=== PATIENT | male | born 1945 | race Caucasian/White ===

== ENCOUNTER 2018-02-19 09:51 | Day surgery (SDC) | payer MEDICARE, BC ==
[2018-02-19] VITALS (7 sets, daily range): BP systolic 120–150; BP diastolic 62–83; PULSE 39–76; TEMP 98–98.2
[~2018-02-19] VITALS: Ht 175.4 cm; Wt 107.2 kg
[~2018-02-19 09:51] MED LIST: AMBIEN 5MG TABLE5 MG PO; BENADRYL50 MG PO; BETAPACE 120MG120 MG PO; COUMADIN 3MG3 MG/TAB PO; COUMADIN4 MG PO; FISH OIL1000 MG PO; LOVENOX 3030 MG/0.3 SQ; NORVASC 5MG5 MG/TAB PO; PRILOSEC 20MG20 MG PO; PRINIVIL40 MG PO; ZETIA 10MG TAB10 MG PO
[2018-02-19 10:33] LABS: HEMOGLOBIN 12.5 g/dl (13.5-18.0); MEAN CELL VOLUME 91 fl (80.0-100.0); MEAN CORPUSCULAR HEMOGLOBIN 29 pg (27.0-31.0); MEAN CORPUSCULAR HGB CONC 32 g/dl (33.0-37.0); MEAN PLATELET VOLUME 11.5 fl (7.4-10.4); PLATELET COUNT 175 K/mm3 (130-400); RED BLOOD COUNT 4.29 M/mm3 (4.20-5.60); REDCELL DISTRIBUTION WIDTH-CV 13.2 % (11.5-14.5)
[2018-02-19 10:43] LABS: CALCIUM 9.1 mg/dL (8.4-10.2); CREATININE, serum 1.01 mg/dL (0.66-1.25); POTASSIUM 4.5 mmol/L (3.4-5.0)
[2018-02-19 10:45] LABS: INR 1.6 (0.8-3.0); PROTHROMBIN TIME 18.5 SECONDS (9.7-12.8)
[2018-02-19] MEDS ORDERED: NORVASC 10MG10 MG PO (10:46)
[2018-02-19] MEDS ORDERED: VITAMIN D32000 I1 PO (10:46)
[2018-02-19] MEDS ORDERED: ZYRTEC 10MG10 MG PO (10:47)
[2018-02-19] MEDS ORDERED: COLACE 100100 MG/CAP PO (10:47)
[2018-02-19] MEDS ORDERED: COZAAR 50MG50 MG/TAB PO (10:48)
[2018-02-20 00:39] VITALS: BP 140/55; PULSE 70
[2018-02-20 05:03] VITALS: BP 139/58; PULSE 76
[2018-02-20 07:19] LABS: INR 1.5 (0.8-3.0); PROTHROMBIN TIME 16.7 SECONDS (9.7-12.8)
[2018-02-20 08:19] VITALS: BP 142/57; PULSE 70; TEMP 98.2
[2018-02-20] MEDS ORDERED: CEPHALEXIN500 M1 PO (09:27)
[2018-02-20] MEDS ORDERED: BETAPACE 80MG80 MG PO (11:02)
== END 2018-02-20 11:55 | disposition home or self-care (01) ==
LOC: COL.CAR 09:51 → MEDICAL 16:30 → COL.CAR 02-20 11:55
PROVIDERS: Internal Medicine Cardiovascular Disease
DX: R00.1 Bradycardia, unspecified (principal); I48.0 Paroxysmal atrial fibrillation; I10 Essential (primary) hypertension; I71.2 Thoracic aortic aneurysm, without rupture; Z79.01 Long term (current) use of anticoagulants; Z87.891 Personal history of nicotine dependence; Z95.2 Presence of prosthetic heart valve
CPT/HCPCS: OP; C1769; C1785; C1894; C1898; J0690; J2250; J3010; J7030

== ENCOUNTER 2018-06-18 08:59 | Day surgery (SDC) | payer MEDICARE, BC ==
[~2018-06-18] VITALS: Ht 175.3 cm; Wt 106.3 kg
[~2018-06-18 08:59] MED LIST changes: -BETAPACE 120MG120 MG PO; +BETAPACE 80MG80 MG PO; +BETAPACE160 MG PO; +CEPHALEXIN500 M1 PO; +COLACE 100100 MG/CAP PO; +COZAAR 50MG50 MG/TAB PO; +NORVASC 10MG10 MG PO; +VITAMIN D31000 I1 PO; +ZYRTEC 10MG10 MG PO
[2018-06-18 09:44] VITALS: BP 138/83; PULSE 71; TEMP 97.5
[2018-06-18 10:06] LABS: INR 1.7 (0.8-3.0); PROTHROMBIN TIME 19.8 SECONDS (9.7-12.8)
[2018-06-18] MEDS ORDERED: FERROUS SU325 MG/TAB PO (10:07)
[2018-06-18 10:09] LABS: POTASSIUM 4.4 mmol/L (3.4-5.0)
[2018-06-18 10:41] LABS: THYROID STIMULATING HORMONE 2.05 uIU/mL (0.465-4.680)
[2018-06-18 10:53] LABS: HEMATOCRIT 30.8 % (42.0-52.0)
[2018-06-18] MEDS ORDERED: COUMADIN 3MG3 MG/TAB PO (11:33)
[2018-06-18] MEDS ORDERED: COUMADIN4 MG PO (11:34)
--- NOTE | 2018-06-18 11:49 | NUR ---
Procedure cancelled per Dr Jason.Discharge instructions given to pt.Pt verbalizes understanding.INT removed,catheter tip intact.
--- NOTE | 2018-06-18 11:57 | NUR ---
Pt escorted out by this nurse.
== END 2018-06-18 11:58 | disposition home or self-care (01) ==
LOC: COL.CAR 08:59
PROVIDERS: Internal Medicine Cardiovascular Disease; Nurse Practitioner
DX: I48.0 Paroxysmal atrial fibrillation (principal); G47.30 Sleep apnea, unspecified; Z95.0 Presence of cardiac pacemaker; Z79.899 Other long term (current) drug therapy; Z79.01 Long term (current) use of anticoagulants; Z09 Encounter for follow-up examination after completed treatment for conditions other than malignant neoplasm; Z95.2 Presence of prosthetic heart valve; I35.9 Nonrheumatic aortic valve disorder, unspecified; Z53.09 Procedure and treatment not carried out because of other contraindication; R79.1 Abnormal coagulation profile
CPT/HCPCS: J7030

== ENCOUNTER 2018-07-06 08:03 | Day surgery (SDC) | payer MEDICARE, BC ==
[2018-07-06] VITALS (10 sets, daily range): BP systolic 115–145; BP diastolic 7–82; PULSE 68–70; TEMP 97.9
[~2018-07-06] VITALS: Ht 175.3 cm; Wt 103.9 kg
[~2018-07-06 08:03] MED LIST changes: +FERROUS SU325 MG/TAB PO
[2018-07-06 09:05] LABS: POTASSIUM 3.9 mmol/L (3.4-5.0)
[2018-07-06 09:08] LABS: INR 2.7 (0.8-3.0); PROTHROMBIN TIME 30.5 SECONDS (9.7-12.8)
[2018-07-06] MEDS ORDERED: TYLENOL 500MG500 MG PO (09:09)
[2018-07-06] MEDS ORDERED: TYLENOL PM EXTR1 TA1 PO (09:10)
[2018-07-06 09:40] LABS: THYROID STIMULATING HORMONE 1.84 uIU/mL (0.465-4.680)
--- NOTE | 2018-07-06 10:07 | NUR ---
PT IN ROOM 12 POST SUCCESSFUL CARDIOVERSION. VSS AND DROWSY BUT AROUSABLE. PT DENIES PAIN AT THIS TIME AND IS RESTING COMFORTABLY IN BED.
--- NOTE | 2018-07-06 10:29 | NUR ---
CARDIOVERSION PERFORMED IN EXPRESS UNIT WITH MD STAHL AT BEDSIDE. ALL MEDICATIONS WERE GIVEN WITH VERBAL ORDER FROM MD STAHL. SEE MODERATE SEDATION FLOWSHEET IN PATIENT'S PAPER CHART FOR MEDICATION ADMIN TIMES AND Q5 VITAL SIGNS/MODERATE SEDATION ASSESSMENTS. X1 SHOCK AT 200 JOULES WHICH RESULTED IN CONVERSION BACK TO NSR. REPORT GIVEN TO OLU BRASWELL.
--- NOTE | 2018-07-06 12:25 | NUR ---
PT VSS STABLE AND AX0X3 POST CARDIOVERSION.TOLERATING FLUIDS PO WITHOUT ISSUE. ATTEMPTED TO AMBULATE AROUND NURSING STATION BUT PATIENT VERBALIZED FEELING "STIFF AND SLIGHTLY LIGHT HEADED" WHEN STANDING UP. PT SAT ON EDGE OF BED AND VITALS RETAKEN. VSS AND UNCHANGED. PT FELT BETTER ONCE SITTING UP ON EDGE OF BED. DISCHARGE INSTRUCTIONS REVIEWED AND SIGNED. 20G REMOVED FROM LEFT AC. PT WHEELED SAFELY OUT THROUGH PT ENTRANCE WHERE SON WAS PRESENT CUSHION MAKER.
== END 2018-07-06 12:25 | disposition home or self-care (01) ==
LOC: COL.CAR 08:03
PROVIDERS: Internal Medicine Cardiovascular Disease
DX: I48.0 Paroxysmal atrial fibrillation (principal); G47.33 Obstructive sleep apnea (adult) (pediatric); I35.8 Other nonrheumatic aortic valve disorders
CPT/HCPCS: J2250; J3010; J7030

== ENCOUNTER 2019-03-22 09:57 | Inpatient (IN) | payer MEDICARE, BC ==
[~2019-03-22] VITALS: Ht 175.3 cm; Wt 99.9 kg
[~2019-03-22 09:57] MED LIST changes: -COZAAR 50MG50 MG/TAB PO; +COZAAR100 MG PO; +TYLENOL 500MG500 MG PO; +TYLENOL PM EXTR1 TA1 PO
[2019-05-25] VITALS (11 sets, daily range): BP systolic 109–169; BP diastolic 61–74; PULSE 69–72; TEMP 97.2–98
[2019-05-25] MEDS ORDERED: ALPHAGAN 10 ML10 ML OU (05:43)
[2019-05-25] MEDS ORDERED: LOVENOX 100100 MG/ML SQ (05:43)
--- NOTE | 2019-05-25 09:40 | NUR ---
returned to room per bed from PACU, awake and alert, IV infusing and placed on pump at 125ml/hr, O2 on at O2 sat 96%, SCDS on bilaterally and RAYNE hose on right leg, letitia wrap dressing to left leg CD&I, has sensation to top of thighs, and beginning to have gross motor movement,
--- NOTE | 2019-05-25 10:00 | NUR ---
full assessment completed, see interventions for further info, denies pain or needs, taking water and tolerates well, family at bedside
--- NOTE | 2019-05-25 10:30 | NUR ---
has sensation to feet and is able to wiggle toes and do ankle pumps
--- NOTE | 2019-05-25 10:44 | NUR ---
JUAN met with the patient, his daughter (Beverley Ortiz, ph#[phone]), and two sons (Bogdan & Dario) to discuss discharge plan. The patient was in and out of napping. The patient lives alone in [place]. His son, Bogdan, states that he lives nearby. His family reports that the patient was independent with ADLs prior to hospitalization and that he has a walker. The patient's PCP is Dr. Cristian Phan and he receives his medications at [facility]. His family reports no difficulties obtaining his meds. The patient's DPOA-HC is in his chart. The patient's DPOA-HC is his daughter, Beverley. The patient and his family state that the plan is for the patient to go to [facility] upon discharge. JUAN presented and explained the Patient Choice Form to the patient and his family. The patient's son, Bogdan, signed, and he was provided a copy. His family states that they would be able to provide transport for the patient to [facility]. JUAN contacted and faxed a referral to Brielle at [facility]. Brielle reports that they would be able to accept the patient, when ready to discharge. JUAN to inform the patient and his family and will continue to follow.
--- NOTE | 2019-05-25 11:30 | NUR ---
has urge to void, assisted to standing at bed and voided qs, back into bed and then c/o pain4-08/21, medicated with roxicodone 5mg, instruc jihan him if continues to have pain will provide second roxicodone, verbalizes understanding
--- NOTE | 2019-05-25 12:15 | NUR ---
had clear liquids and tolerated well, continues to c/o pain and medicated with second roxicodone 5mg, states pain is now 5-6/10, will monitor
--- NOTE | 2019-05-25 13:10 | NUR ---
continues to c/o pain after second roxicodone 5mg given, medicated with morphine 2mg slow IV
--- NOTE | 2019-05-25 13:50 | NUR ---
appears to be sleeping, in bed with eyes closed, resp quiet and easy, family at bedside
--- NOTE | 2019-05-25 14:47 | NUR ---
continues to appear to doze, denies needs when arouses
--- NOTE | 2019-05-25 15:44 | NUR ---
awake resting in bed, visiting with family and hinduism members, denies needs
--- NOTE | 2019-05-25 17:10 | NUR ---
sitting up in bed eating supper
--- NOTE | 2019-05-25 19:10 | NUR ---
bedside shift report given to OLU Gordon
--- NOTE | 2019-05-25 21:00 | NUR ---
Pt. sitting up in bed at this time. Pt. is A&OX3, assessment complete. IV to rt. hand patent, IV fluids infusing per orders. Idris dressing to lt. knee CDI. Pt. reported pain at a 5 on pain scale at this time. Pt. is A&OX3, assessment complete. Pt. denies further needs, call light within reach.
[2019-05-26 06:59] LABS: HEMOGLOBIN 11.5 g/dl (13.5-18.0)
[2019-05-26 07:08] LABS: INR 1.1 (0.8-3.0); PROTHROMBIN TIME 13.1 SECONDS (9.7-12.8)
--- NOTE | 2019-05-26 07:45 | NUR ---
PATIENT RESTING IN BED, ASSESSMENT COMPLETED, PAIN SCALE ON 1-10 PATIENT STATES 0, ELSIE WRAP CDI, SWELL AND TENDERNESS ABOVE LEFT KNEE, SCD ON BILATERAL, RAYNE ON LEFT LEG, APPLIED ICE ABOVE LEFT KNEE
[2019-05-26 08:12] VITALS: BP 149/60; PULSE 70; TEMP 98.3
[2019-05-26 10:15] VITALS: BP 155/68; PULSE 70; TEMP 98.1
--- NOTE | 2019-05-26 11:58 | NUR ---
Initial visit; Patient thanked Agricultural Engineering Teacher for looking in on him and offering God's blessings.
--- NOTE | 2019-05-26 13:34 | NUR ---
Brielle, at [facility], reports that Dr. Phan will be the accepting provider and to contact the number [phone] for the [id number]. The number for the [id number] report is [phone]. JUAN faxed updates to Jannah. MARTINEZ to continue to follow.
--- NOTE | 2019-05-26 14:30 | NUR ---
Dressing to left knee changed from ABD to aqacell. Acewrap removed. Patient tolerated well. Fresh ice to left knee. Patient has been getting up with minimal assisst. He is moving well. Minimal complaints of pain. Pain medications given once this am before therapy but nothing additional given. The scheduled pain medications are working well for him. No complaints of nausea today. No drainage to old dressing that was removed. No reddness, drainage or bruising to left hip. No other changes at this time. Call light within reach.
[2019-05-26 16:00] VITALS: BP 126/58; PULSE 72; TEMP 98.1
--- NOTE | 2019-05-26 19:00 | NUR ---
Patient has been up in chair several times throughout the day. Voiding without issues. His pain is well controlled. Explained why he has the jetstream to his knee and why he has it. No other changes at this time. Call light within reach.
[2019-05-26 20:48] VITALS: BP 165/65; PULSE 72; TEMP 97.8
[2019-05-27 00:04] VITALS: BP 140/71; PULSE 71; TEMP 97.8
[2019-05-27 04:15] VITALS: BP 141/68; PULSE 73; TEMP 97.6
--- NOTE | 2019-05-27 05:47 | NUR ---
Patient has rested well throughout the night. Ambulates with SBA from staff with walker and gait belt. Gait steady. PRN pain medication given at HS per request. Patient up to the bathroom with staff overnight. States no bowel movement, but is passing gas. Aquacel to left knee clean, dry, and intact. Cryocuff utilized to left knee. Lovenox and Coumadin given for VTE at HS. Will continue to monitor.
[2019-05-27 06:02] LABS: HEMOGLOBIN 10.8 g/dl (13.5-18.0)
[2019-05-27 06:03] LABS: HEMATOCRIT 31.8 % (42.0-52.0)
[2019-05-27 06:12] LABS: INR 1.2 (0.8-3.0); PROTHROMBIN TIME 14.2 SECONDS (9.7-12.8)
[2019-05-27 08:00] VITALS: BP 138/64; PULSE 71; TEMP 97.6
--- NOTE | 2019-05-27 08:00 | NUR ---
PATIENT IS A&O HOWEVER, PATIENT SEEMS A LITTLE CONFUSED REGUARDING AM MEDS. PATIENT WAS CONVINCED HE HAD ALL HIS AM MEDS FROM THE NIGHT NURSE AROUND 4AM. AFTER REVIEWING EMAR & OMNICEL, PATIENT RECEIVED MEDS FROM THE NIGHT NURSE THE PRIOR EVENING AND THOUGHT IS WAS MORNING. PATIENT IS OTHERWISE ORIENTED. VSS. DENIES PAIN AT THIS TIME. ASSISTED TO BEDSIDE CHAIR WITH STAND BY AND WALKER. LTK DRESSING IS CD&I WITH AQUACEL. TEDS TO BLE. POSITIVE PEDAL PULSES TO BLE. PATIENT EAT/DRINK/VOIDING SUFFICENT AMOUNTS. NO C/O N/V. BREAKFAST TRAY AT BEDSIDE. STUDENT NURSE WORKING WITH PATIENT TODAY, SEE CHARTING.
[2019-05-27 12:39] VITALS: BP 138/64; PULSE 71; TEMP 97.6
[2019-05-27] MEDS ORDERED: TYLENOL 500MG500 MG PO (13:35)
[2019-05-27] MEDS ORDERED: ROXICODONE 55 MG/TAB PO (13:37)
--- NOTE | 2019-05-27 13:42 | NUR ---
Resting in the chair, worked with PT
--- NOTE | 2019-05-27 15:15 | NUR ---
REPORTED OFF TO OLU JARAMILLO.
--- NOTE | 2019-05-27 16:24 | NUR ---
The patient is to tentatively discharge tomorrow, 05/28, to [facility]. JUAN met with the patient and his daughter, Beverley, to review discharge plan. The patient is in agreeance to the discharge. He states that his son will be providing transport for him. JUAN presented and explained the IM form to the patient. The patient verbalized understanding, signed, and he was provided a copy. JUAN to continue to follow.
[2019-05-27 17:12] VITALS: BP 126/63; PULSE 73; TEMP 97.6
--- NOTE | 2019-05-27 19:00 | NUR ---
Patient has done well throughout the afternoon. Denies pain at this time. Has been up with stand by assist to restroom. Denies further needs at this time. Reported off to night manager.
[2019-05-27 19:45] VITALS: BP 148/66; PULSE 70; TEMP 97.5
[2019-05-28 04:00] VITALS: BP 139/68; PULSE 70; TEMP 97.8
--- NOTE | 2019-05-28 04:45 | NUR ---
Patient has rested well throughout the night. Pain medication given as requested this shift with relief noted. SBA for transfers and ambulation to the restroom. Utilizes walker with steady gait. States cryocuff is bothering his knee more than helping it, so this was taken off at about 0400 this morning. Patient denies any further needs. Will continue to monitor.
[2019-05-28 07:50] LABS: HEMATOCRIT 29.1 % (42.0-52.0); HEMOGLOBIN 9.7 g/dl (13.5-18.0)
[2019-05-28 08:13] LABS: INR 1.5 (0.8-3.0); PROTHROMBIN TIME 17.5 SECONDS (9.7-12.8)
[2019-05-28 08:22] VITALS: BP 143/52; PULSE 75; TEMP 98
[2019-05-28 10:15] VITALS: BP 143/52; PULSE 75; TEMP 98
--- NOTE | 2019-05-28 10:33 | NUR ---
The [id number] was done. The patient is to discharge today, 05/28, to [facility]. Transportation to be by private vehicle, via the patient's family. No additional needs at this time.
--- NOTE | 2019-05-28 11:15 | NUR ---
PATIENT DISCHARGING VIA TO [facility]. STUDENT NURSE CAITLIN IV. PATIENT DRESSED AND PACKED FOR DISCHARGE. GAVE INFO PACKET TO SON. CALLED REPORT TO NURSE AT FACILITY. PATIENT DISCHARGED.
== END 2019-05-28 11:15 | DRG 470 ==
LOC: JCC 05-25 05:05
PROVIDERS: Physician Assistant; ADMIT Orthopaedic Surgery
PROC: 0SRD0J9 Replacement of Left Knee Joint with Synthetic Substitute, Cemented, Open Approach (ICD-10-PCS; principal; 2019-05-25 07:30)
DX: M17.12 Unilateral primary osteoarthritis, left knee (principal)
CPT/HCPCS: A9284; C1776; J0690; J1100; J1650; J2250; J2270; J2405; J2704; J3010; J7121